=== PATIENT | male | born 1980 | race African-American/Black ===

== ENCOUNTER 2018-01-24 21:48 | Emergency (ER) | payer MEDICAID ==
[~2018-01-24] VITALS: Ht 170.2 cm; Wt 88.0 kg
[2018-01-24 22:04] VITALS: BP 124/76; PULSE 85; RESP 18; TEMP 98.8; O2SAT 99
[2018-01-24] MEDS ORDERED: ACETAMINOPHEN/HYDROcodone 325 MG/5 MG TAB PO ONE (23:30)
[2018-01-25] MEDS ORDERED: CORTI10A LEFT EAR (00:11)
[2018-01-25] MEDS ORDERED: HYDR-3516 PO (00:11)
[2018-01-25] MEDS ORDERED: AMOX875T PO (00:11)
--- NOTE | 2018-01-25 00:11 | PD ---
HPI Chief Complaint: ENT Complaint Time Seen by Provider: 23:25 Travel History International Travel<30 days: No Contact w/Intl Traveler<30days: No Traveled to known affect area: No History of Present Illness HPI 37-year-old male here for evaluation of left ear pain, left facial swelling, left-sided headache. Patient reports his symptoms started about a week ago. He was started on Bactrim, however has finished his antibiotic. He states his pain is not improved. Pain is sharp, stabbing, constant, moderate to severe, radiates from his left ear. He has not been swimming lately. He denies fevers. [facility] Past Medical History Medical History: Denies Significant Hx Diminished Hearing: No Tetanus Vaccination: < 5 Years Influenza Vaccination: No Past Surgical History Surgical History: No Previous Surgery Social History Alcohol Use: No Tobacco Use: No Substance Use: No Allergies-Medications (Allergen,Severity, Reaction): Coded Allergies: No Known Allergies (Unverified , 01/24/18) Review of Systems Except as stated in HPI: all other systems reviewed are Neg Physical Exam Narrative GENERAL: Well-developed, well-nourished, no apparent distress. SKIN: Focused skin assessment warm/dry. No rash. HEAD: Atraumatic. Normocephalic. No facial asymmetry or swelling. EYES: Pupils equal, round, 3 mm, reactive to light. EOMI. No scleral icterus. No injection or drainage. ENT: No nasal bleeding or discharge. Mucous membranes pink and moist. Normal pharynx. No drooling or stridor. Normal phonation. Right tympanic membrane and external auditory canal are normal. Left external auditory canal with cerumen impaction which was irrigated by one of my techs, and examination afterwards shows that the external auditory canal is edematous slightly erythematous, and the left tympanic membrane is erythematous and bulging, appears to be intact without perforation. NECK: Trachea midline. No JVD. No nuchal rigidity. CARDIOVASCULAR: Regular rate and rhythm. RESPIRATORY: No accessory muscle use. Clear to auscultation. Breath sounds equal bilaterally. MUSCULOSKELETAL: No obvious deformities. No clubbing. No cyanosis. No edema. NEUROLOGICAL: Awake and alert. No obvious cranial nerve deficits. Motor grossly within normal limits. Normal speech. PSYCHIATRIC: Appropriate mood and affect; insight and judgment normal. Data Data Last Documented VS Vital Signs Date Time Temp Pulse Resp B/P (MAP) Pulse Ox O2 Delivery O2 Flow Rate FiO2 01/24/18 22:04 98.8 85 18 124/76 (92) 99 Orders Orders Acetamin-Hydrocod 325-5 Mg ([place] 5-325 (01/24/18 23:30) Ear Irrigation (01/24/18 23:30) Yfkzfcal-Rxyifmfo-Bl Otic Susp (Cortispo (01/25/18 00:15) Amoxicillin (Trimox) (01/25/18 00:15) MDM Medical Decision Making Medical Screen Exam Complete: Yes Emergency Medical Condition: Yes Differential Diagnosis Otitis media, otitis externa Narrative Course This is a 37-year-old male with 1 week of left ear pain. After the left ear was irrigated, patient has physical exam findings consistent with otitis externa as well as otitis media. The left tympanic membrane appears to be intact without perforation. Plan at this time is to start the patient on Cortisporin eardrops as well as amoxicillin. I will also give him a few hydrocodone to use for pain mainly at night to help with sleep. I will given the name of the ENT physician on-call with him to follow-up with this week. He was advised on when to return to the emergency department. He verbalizes understanding and agreement with plan. Diagnosis Primary Impression: Otitis externa Qualified Codes: H60.502 - Unspecified acute noninfective otitis externa, left ear Additional Impression: Otitis media Qualified Codes: H66.90 - Otitis media, unspecified, unspecified ear Referrals: Kwesi Lane MD 3 days ENT Primary Care Physician 3 days Additional Instructions: Follow-up with a primary care physician this week. Follow-up with ENT Dr. Lane or an ENT physician of your choice this week. Take antibiotics as prescribed. Return to the emergency department for worsening symptoms or any other concerns. Scripts Hydrocodone-Acetaminophen (Hydrocodone-Acetaminophen) 5-325 mg Tab 1 TAB PO Q6H Y for PAIN, #6 TAB 0 Refills Prov: Evin Rangel MD 01/25/18 Hepqyjky-Klfftxdch-UJ Otic Drops (Kimnvjtn-Zfbmvetuo-CT Otic Drops) 1 % Soln 4 DROP LEFT EAR QID for Infection, #1 BOTTLE 0 Refills Prov: Evin Rangel MD 01/25/18 Amoxicillin (Amoxicillin) 875 Mg Tab 875 MG PO BID for Infection for 10 Days, #20 TAB 0 Refills Prov: Evin Rangel MD 01/25/18 Disposition: 01 DISCHARGE HOME Condition: Stable Evin Rangel MD Jan 25, 2018 00:11
[2018-01-25] MEDS ORDERED: NEOMYCIN/POLYMYXIN/HYDROCORT OTIC SUSP 10 ML BTL LEFT EAR ONE (00:15)
[2018-01-25] MEDS ORDERED: AMOXICILLIN 875 MG TAB PO ONE (00:15)
[2018-01-25] MEDS ORDERED: NEOMYCIN/POLYMYXIN/HYDROCORT OTIC SOLN 10 ML BTL LEFT EAR ONE (00:45)
== END 2018-01-25 00:46 | disposition home or self-care (01) ==
LOC: NEPD 21:48
DX: H60.502 Unspecified acute noninfective otitis externa, left ear (principal); H66.92 Otitis media, unspecified, left ear
CPT/HCPCS: 99283